=== PATIENT | female | born 1975 | race Caucasian/White ===

== ENCOUNTER 2018-03-30 12:43 | Emergency (ER) | payer SELFPAY ==
[~2018-03-30] VITALS: Ht 167.6 cm; Wt 97.5 kg
[2018-03-30 13:37] LABS: BASOPHILS % 0.3 % (0.0-1.0); EOSINOPHILS # (AUTO) 0.1 (0.0-0.4); HEMATOCRIT 40.5 % (34.2-44.1); HEMOGLOBIN 13.6 g/dL (12.0-16.0); LYMPHOCYTES # (AUTO) 2.5 (1.0-3.2); LYMPHOCYTES % 33.8 % (18.0-39.1); MEAN CORPUSCULAR HEMOGLOBIN 30.6 pg (28-32); MEAN CORPUSCULAR HGB CONC 33.6 g/dL (31-35); MONOCYTES # (AUTO) 0.5 (0.2-0.8); MONOCYTES % 6.1 % (4.4-11.3); NEUTROPHILS # (AUTO) 4.3 (2.1-6.9); NEUTROPHILS % 58.4 % (38.7-80.0); PLATELET COUNT 217 x10e3/uL (140-360); RED BLOOD COUNT 4.45 x10e6/uL (3.6-5.1); RED CELL DISTRIBUTION WIDTH 12.3 % (11.7-14.4)
[2018-03-30 13:58] LABS: ALANINE AMINOTRANSFERASE 13 IU/L (0-55); ALBUMIN 4.1 g/dL (3.5-5.0); ALBUMIN/GLOBULIN RATIO 1.2 (0.8-2.0); ALKALINE PHOSPHATASE 51 IU/L (40-150); ANION GAP 17.5 mmol/L (8-16); BLOOD UREA NITROGEN 11 mg/dL (7-26); BUN/CREATININE RATIO 13 (6-25); CALCIUM 9.7 mg/dL (8.4-10.2); CARBON DIOXIDE 21 mmol/L (22-29); CHLORIDE 107 mmol/L (98-107); CREATINE KINASE 41 IU/L (29-168); CREATININE, SERUM 0.84 mg/dL (0.57-1.11); EST GLOMERULAR FILTRATION RATE > 60 ML/MIN (60-); GLUCOSE 109 mg/dL (74-118); POTASSIUM 3.5 mmol/L (3.5-5.1); SODIUM 142 mmol/L (136-145)
[2018-03-30] MEDS ORDERED: SODIUM CHLORIDE 0.9% 50ML 50 ML ONE (15:02)
[2018-03-30] MEDS ORDERED: IOPAMIDOL 370 MG/ML 200 ML INFUS..BTL INJ ONE (15:02)
--- NOTE | 2018-03-30 15:11 | Diagnostic Imaging Report ---
EXAMINATION: CT scan of the chest with contrast. TECHNIQUE: Helical CT images of the chest were performed from the lung apices to the level of the adrenal glands after the intravenous administration of 100 cc of Isovue 300. Coronal and sagittal reformatted images were obtained.Dose modulation, iterative reconstruction, and/or weight based adjustment of the mA/kV was utilized to reduce the radiation dose to as low as reasonably achievable. COMPARISON: None. CLINICAL HISTORY:Shortness of breath, evaluate for pulmonary DISCUSSION: LINES/TUBES: None. LUNGS AND AIRWAYS: The lungs are clear. No pulmonary nodules, masses or consolidation. The airways are normal, without endobronchial lesions. No pulmonary blood. PLEURA: No pneumothorax or pleural effusions. HEART AND MEDIASTINUM: The thyroid gland is normal. The heart and pericardium are within normal limits. LYMPH NODES: There is no mediastinal, hilar or axillary lymphadenopathy. ABDOMEN: Limited contrast-enhanced views of the upper abdomen show no abnormality within the visualized liver, spleen, pancreas, or kidneys. The adrenal glands are normal. BONES AND SOFT TISSUES: No acute bony abnormalities. IMPRESSION: No pulmonary embolism. Signed by: Dr. Cr Mtz M.D. on 03/30/2018 3:07 PM
[2018-03-30 15:42] VITALS: BP 120/72
== END 2018-03-30 15:51 | disposition home or self-care (01) ==
LOC: ER 12:43
DX: R06.09 Other forms of dyspnea (principal); Z86.711 Personal history of pulmonary embolism
CPT/HCPCS: 36415; 71260; 80053; 81025; 82550; 82553; 83880; 84484; 85025; 85379; 93005; 99284; Q9967

== ENCOUNTER 2019-08-06 14:32 | Emergency (ER) | payer SELFPAY ==
[~2019-08-06] VITALS: Ht 167.6 cm; Wt 97.5 kg
[2019-08-06] MEDS ORDERED: ASPIRIN 81 MG CHEW TAB PO NR ×2 (15:30)
--- NOTE | 2019-08-06 15:30 | NUR ---
EKG DONE AT TRIAGE
--- NOTE | 2019-08-06 16:00 | Diagnostic Imaging Report ---
EXAMINATION: CHEST SINGLE (NOT PORTABLE) INDICATION: Chest pain COMPARISON: None FINDINGS: LINES/TUBES:None LUNGS:The lungs are well-inflated. No focal consolidation or pulmonary edema. PLEURA:No pleural effusion or pneumothorax. MEDIASTINUM:The cardiomediastinal silhouette appears normal in size and shape. BONES/SOFT TISSUES:No acute osseous injury. ABDOMEN:No free air under the diaphragm. IMPRESSION: No focal pneumonia or pulmonary edema. Signed by: Yoan Ding MD on 08/06/2019 3:57 PM
[2019-08-06 18:14] LABS: BASOPHILS % 0.3 % (0.0-1.0); EOSINOPHILS % 0.4 % (0.0-6.0); HEMATOCRIT 43.4 % (34.2-44.1); HEMOGLOBIN 15.1 g/dL (12.0-16.0); LYMPHOCYTES # (AUTO) 2.1 (1.0-3.2); LYMPHOCYTES % 30.3 % (18.0-39.1); MEAN CORPUSCULAR HEMOGLOBIN 30.8 pg (28-32); MEAN CORPUSCULAR HGB CONC 34.8 g/dL (31-35); MEAN CORPUSCULAR VOLUME 88.4 fL (81-99); MONOCYTES # (AUTO) 0.4 (0.2-0.8); NEUTROPHILS # (AUTO) 4.4 (2.1-6.9); NEUTROPHILS % 62.6 % (38.7-80.0); PLATELET COUNT 202 x10e3/uL (140-360); RED BLOOD COUNT 4.91 x10e6/uL (3.6-5.1); RED CELL DISTRIBUTION WIDTH 12.1 % (11.7-14.4)
[2019-08-06 18:22] LABS: INR 0.94; PROTHROMBIN TIME 12.8 seconds (11.9-14.5)
[2019-08-06 18:23] LABS: PARTIAL THROMBOPLASTIN TIME 31.1 seconds (23.8-35.5)
[2019-08-06 18:29] LABS: ALANINE AMINOTRANSFERASE 7 IU/L (0-55); ALBUMIN 4.6 g/dL (3.5-5.0); ALBUMIN/GLOBULIN RATIO 1.4 (0.8-2.0); ALKALINE PHOSPHATASE 43 IU/L (40-150); ANION GAP 15.5 mmol/L (8-16); BLOOD UREA NITROGEN 11 mg/dL (7-26); BUN/CREATININE RATIO 14 (6-25); CALCIUM 9.2 mg/dL (8.4-10.2); CARBON DIOXIDE 20 mmol/L (22-29); CHLORIDE 106 mmol/L (98-107); CREATINE KINASE 35 IU/L (29-168); CREATININE, SERUM 0.81 mg/dL (0.57-1.11); EST GLOMERULAR FILTRATION RATE > 60 ML/MIN (60-); GLUCOSE 89 mg/dL (74-118); POTASSIUM 3.5 mmol/L (3.5-5.1); SODIUM 138 mmol/L (136-145)
[2019-08-06] MEDS ORDERED: SODIUM CHLORIDE 0.9% 1000ML 1,000 ML IV STA (19:10)
--- OUTSIDE RECORDS SUMMARY | 2019-08-06 19:42 | XMS REPORT ---
Author Author [facility] Address Unknown Phone Unavailable Care Team Providers Care Editorial Director Name Role Phone Tapan ROSS Unavailable Unavailable TRAV ORTIZ Unavailable Unavailable Problems This patient has no known problems. Allergies, Adverse Reactions, Alerts This patient has no known allergies or adverse reactions. Medications This patient has no known medications. Results Test Description Test Time Test Comments Text Results Atomic Results Result Comments CHEST SINGLE (NOT PORTABLE) 2019-08-06 15:57:00 [place] [address] Patient Name: BRITTANIE YOUNG MR #: [id number] : 1975 Age/Sex: 44/F Req #: [id number] Adm Physician: Ordered by: GUCCI ROSS MD Report #: [id number] Location: ER Room/Bed: Procedure: [id number] DX/CHEST SINGLE (NOT PORTABLE) Exam Date: 08/06/19 Exam Time: 1510 REPORT STATUS: Signed EXAMINATION: CHEST SINGLE (NOT PORTABLE) INDICATION: Chest pain COMPARISON: None FINDINGS: LINES/TUBES:None LUNGS:The lungs are well-inflated. No focal consolidation or pulmonary edema. PLEURA:No pleural effusion or pneumothorax. MEDIASTINUM:The cardiomediastinal silhouette appears normal in size and shape. BONES/SOFT TISSUES:No acute osseous injury. ABDOMEN:No free air under the diaphragm. IMPRESSION: No focal pneumonia or pulmonary edema. Signed by: Lesly Olguin MD on 08/06/2019 3:57 PM Dictated By: LESLY OLGUIN MD 56 Transcribed By: KRISTAN on 08/06/191556 COPY TO: GUCCI ROSS MD CT CHEST W 2018-03-30 15:01:00 [place] [address] Patient Name: BRITTANIE YOUNG MR #: [id number] : 1975 Age/Sex: 43/F Req #: [id number] Adm Physician: Ordered by: CHUCK HENDERSON MD Report #: [id number] Location: ER Room/Bed: Procedure: [id number] CT/CT CHEST W Exam Date: 03/30/18 Exam Time: 1443 REPORT STATUS: Signed EXAMINATION: CT scan of the chest with contrast. TECHNIQUE: Helical CT images of the chest were performed from the lung apices to the level of the adrenal glands after the intravenous administration of 100 cc of Isovue 300. Coronal and sagittal reformatted images were obtained.Dose modulation, iterative reconstruction, and/or weight based adjustment of the mA/kV was utilized to reduce the radiation dose to as low as reasonably achievable. COMPARISON: None. CLINICAL HISTORY:Shortness of breath, evaluate for pulmonary DISCUSSION: LINES/TUBES: None. LUNGS AND AIRWAYS: The lungs are clear. No pulmonary nodules, masses or consolidation. The airways are normal, without endobronchial lesions. No pulmonary blood. PLEURA: No pneumothorax or pleural effusions. HEART AND MEDIASTINUM: The thyroid gland is normal. The heart and pericardium are within normal limits. LYMPH NODES: There is no mediastinal, hilar or axillary lymphadenopathy. ABDOMEN: Limited contrast-enhanced views of the upper abdomen show no abnormality within the visualized liver, spleen, pancreas, or kidneys. The adrenal glands are normal. BONES AND SOFT TISSUES: No acute bony abnormalities. IMPRESSION: No pulmonary embolism. Signed by: Dr. Johny Elaine M.D. on 03/30/2018 3:07 PM Dictated By: JOHNY ELAINE MD 1501 Transcribed By: KRISTAN on 03/30/18 [id number] COPY TO: CHUCK HENDERSON MD
[2019-08-06 20:06] LABS: BILIRUBIN,URINE NEGATIVE (NEGATIVE); CLARITY,URINE SL CLOUDY (CLEAR); COLOR,URINE YELLOW (YELLOW); KETONES,URINE 2+ (NEGATIVE); LEUKOCYTE ESTERASE ,URINE NEGATIVE (NEGATIVE); NITRITE,URINE NEGATIVE (NEGATIVE); PROTEIN,URINE DIPSTICK NEGATIVE (NEGATIVE); URINE UROBILINOGEN 0.2 mg/dL (0.2 - 1)
[2019-08-06 20:20] LABS: BACTERIA,URINE FEW /HPF; EPITHELIAL CELLS,URINE FEW /LPF; YEAST,URINE FEW
[2019-08-06 21:47] VITALS: BP 115/76
== END 2019-08-06 21:57 | disposition home or self-care (01) ==
LOC: ER 14:32
DX: R07.9 Chest pain, unspecified (principal); R42 Dizziness and giddiness
CPT/HCPCS: 36415; 71045; 80053; 81001; 82550; 82553; 83880; 84484; 84702; 85025; 85379; 85610; 85730; 93005; 99284; J7030

== ENCOUNTER 2022-08-02 15:46 | Emergency (ER) | payer SELFPAY ==
[~2022-08-02] VITALS: Ht 167.6 cm; Wt 97.5 kg
[2022-08-02] MEDS ORDERED: KETOROLAC TROME10 MG PO (16:08)
[2022-08-02] MEDS ORDERED: METHOCARBAMOL750 MG PO (16:08)
== END 2022-08-02 16:30 | disposition home or self-care (01) ==
LOC: ER 15:55
DX: M54.50 Low back pain, unspecified (principal)
CPT/HCPCS: 99282